=== PATIENT | female | born 1965 | race African-American/Black ===

== ENCOUNTER 2016-12-08 05:37 | Emergency (ER) | payer BC ==
[~2016-12-08] VITALS: Ht 175.3 cm; Wt 112.3 kg
[2016-12-08 06:09] LABS: HEMATOCRIT 38.4 % (36.0-46.0); MCH 31.1 PG (29.0-34.0); MCHC 34.4 G/DL (30.0-36.0); MCV 90.6 FL (83-99); MEAN PLAT.VOLUME 8.7 uM^3 (9.5-12.4); PLATELET COUNT 234 K/uL (156-360); RBC DIS.WIDTH-CV 12.2 % (11.8-14.6); RBC DIS.WIDTH-SD 39.8 % (39-53); RED BLOOD COUNT 4.24 M/uL (3.80-5.20); WHITE BLOOD COUNT 3.7 K/uL (4.1-10.2)
[2016-12-08 06:19] LABS: CHLORIDE 109 mEq/L (99-109); POTASSIUM 3.7 mEq/L (3.7-5.4); SODIUM 141 mEq/L (136-147)
[2016-12-08 06:21] LABS: GLUCOSE 115 mg/dL (70-99)
[2016-12-08 06:22] LABS: ANION GAP 12 MEQ/L (2-14)
[2016-12-08 06:25] LABS: GFR ESTIMATE (CALCULATED) > 59 mL/min/
[2016-12-08 06:26] LABS: UREA NITROGEN (BUN) 14 mg/dL (9-23)
[2016-12-08 07:03] LABS: ADD MIUA? NO; BILIRUBIN NEGATIVE; BLOOD NEGATIVE; COLOR STRAW ((YELLOW)); GLUCOSE (STRIP) NEGATIVE; KETONES NEGATIVE; LEUKOCYTES NEGATIVE; NITRITE NEGATIVE; PROTEIN (STRIP) NEGATIVE; SPECIFIC GRAVITY 1.005 (1.000-1.030); UCUL ADDED? NO; UROBILINOGEN 0.2 MG/DL (0.2-1.0)
[2016-12-08 09:13] VITALS: BP 139/77
== END 2016-12-08 09:15 | disposition home or self-care (01) ==
LOC: EME 05:37
PROVIDERS: Emergency Medicine
PROC: 0T9B70Z Drainage of Bladder with Drainage Device, Via Natural or Artificial Opening (ICD-10-PCS; principal; 2016-12-08)
DX: R33.9 Retention of urine, unspecified (principal); Z98.890 Other specified postprocedural states; Z90.710 Acquired absence of both cervix and uterus
CPT/HCPCS: 80048; 81003; 85027; 99281; 99284